=== PATIENT | male | born 1965 | race Two or more races ===

== ENCOUNTER 2019-02-04 09:25 | Day surgery (SDC) | payer MEDICARE, OTHER ==
[2019-02-04] MEDS ORDERED: LIDOCAINE 2% (SDV) 5 ML INJ (10:19)
[2019-02-04] MEDS ORDERED: FENTAnyl 50 MCG/ML VIAL (10:19)
[2019-02-04] MEDS ORDERED: PROPOFOL 60 ML (10:19)
[2019-02-04] MEDS ORDERED: ONDANSETRON 4 MG INJ IV (11:00)
[2019-02-04] MEDS ORDERED: FENTAnyl 50 MCG/ML VIAL IV (11:00)
[2019-02-04] MEDS ORDERED: METOCLOPRAMIDE 10 MG INJ IV (11:00)
== END 2019-02-04 12:54 | disposition home or self-care (01) ==
LOC: GIL 09:25
DX: Z12.11 Encounter for screening for malignant neoplasm of colon (principal); D12.5 Benign neoplasm of sigmoid colon; K64.4 Residual hemorrhoidal skin tags; D12.8 Benign neoplasm of rectum; K20.8 Other esophagitis; K29.80 Duodenitis without bleeding; K29.00 Acute gastritis without bleeding; I11.0 Hypertensive heart disease with heart failure; I50.9 Heart failure, unspecified; E78.5 Hyperlipidemia, unspecified; I25.2 Old myocardial infarction; I25.10 Atherosclerotic heart disease of native coronary artery without angina pectoris
CPT/HCPCS: 43239; 88305